=== PATIENT | male | born 2000 | race Caucasian/White ===

== ENCOUNTER 2021-11-15 18:43 | Emergency (ER) | payer BC ==
[2021-11-15] MEDS ORDERED: LIDOCAINE 1% W/EPI 1:100,000 MDV 20 ML VIAL ONE (19:12)
[2021-11-15] MEDS ORDERED: CEFAZOLIN SODIUM 1 GM/VIAL ONE (19:27)
[2021-11-15] MEDS ORDERED: TETANUS & DIPHTHERIA TOX,ADULT 0.5 ML VIAL ONE (19:27)
--- NOTE | 2021-11-15 20:27 | RAD REPORT ---
EXAM DESCRIPTION: RAD -Hand Left 3 View - 11/15/2021 8:20 pm CLINICAL HISTORY: Left hand pain status post injury FINDINGS: No fracture or dislocation is seen.
--- NOTE | 2021-11-15 20:45 | EDPHYS ---
Physician Documentation [facility] Name: Tadeo Ngo Age: 21 yrs Sex: Male : 2000 Arrival Date: 11/15/2021 Time: 18:46 Bed 8 Private MD: ED Physician Yosef White HPI: 11/15 19:23 This 21 yrs old Male presents to ER via Ambulatory with complaints of Laceration To [facility]. 19:23 The patient has a laceration related to: a puncture wound from a knife , occurred at a [facility] [place], and The type of wound is a puncture. The injury was accidental. The laceration(s) is(are) located on the Left hand first web space. Onset: The symptoms/episode began/occurred just prior to arrival, today. Associated signs and symptoms: Pertinent negatives: deformity, dizziness, heavy bleeding, loss of consciousness, numbness distal to injury, suspected foreign body. Patient states that he was cutting fascia with a knife when he accidentally cut himself on the left hand. He denies any other injuries.. 19:23 According to nursing staff patient had a possible arterial bleeding from wound upon his [facility] arrival to the ED and a tourniquet was placed to the left wrist. No arterial bleeding noted at time of physician examination.. Historical: - Allergies: 19:02 No Known Allergies; jl7 - Home Meds: 19:02 None [Active]; jl7 - PMHx: 19:02 None; jl7 - PSHx: 19:02 None; jl7 - Immunization history:: Adult Immunizations up to date. - Social history:: Smoking status: Patient denies any tobacco usage or history of. ROS: 19:23 Constitutional: Negative for fever, chills, and weight loss, Eyes: Negative for injury, mh7 pain, redness, and discharge, ENT: Negative for injury, pain, and discharge, Neck: Negative for injury, pain, and swelling, Cardiovascular: Negative for chest pain, palpitations, and edema, Respiratory: Negative for shortness of breath, cough, wheezing, and pleuritic chest pain, Abdomen/GI: Negative for abdominal pain, nausea, vomiting, diarrhea, and constipation, Back: Negative for injury and pain, : Negative for injury, bleeding, discharge, and swelling, Neuro: Negative for headache, weakness, numbness, tingling, and seizure, Psych: Negative for depression, anxiety, suicide ideation, homicidal ideation, and hallucinations, Allergy/Immunology: Negative for hives, rash, and allergies, Endocrine: Negative for neck swelling, polydipsia, polyuria, polyphagia, and marked weight changes, Hematologic/Lymphatic: Negative for swollen nodes, abnormal bleeding, and unusual bruising. Exam: 19:23 Constitutional: This is a well developed, well nourished patient who is awake, alert, mh7 and in no acute distress. Head/Face: Normocephalic, atraumatic. Eyes: Pupils equal round and reactive to light, extra-ocular motions intact. Lids and lashes normal. Conjunctiva and sclera are non-icteric and not injected. Cornea within normal limits. Periorbital areas with no swelling, redness, or edema. 19:23 Neuro: Awake and alert, GCS 15, oriented to person, place, time, and situation. Cranial nerves II-XII grossly intact. Motor strength 5/5 in all extremities. Sensory grossly intact. Cerebellar exam normal. Normal gait. Psych: Awake, alert, with orientation to person, place and time. Behavior, mood, and affect are within normal limits. 19:23 Musculoskeletal/extremity: Extremities: noted in the Left hand first web space: laceration, ROM: intact in all extremities, Circulation is intact in all extremities. Sensation intact. Compartment Syndrome exam of affected extremity: is normal. no numbness, no tingling, no sensation deficit, no palor, no weak pulses, Joints: All joints appear normal with full range of motion. Tendon exam: specific tendon testing normal through active and passive range of motion 19:23 Skin: injury, laceration(s), the wound is approximately 2 cm(s), with a depth of 0.25 cm(s), of the Left hand first web space, that can be described as clean, no foreign body, linear, with moderate bleeding. Vital Signs: 19:17 BP 121 / 85; Pulse 65; Resp 18 S; Pulse Ox 99% on R/A; Pain 10/10; lg3 20:48 BP 102 / 72; Pulse 50; Resp 18; Pulse Ox 100% on R/A; Pain 4/10; lg3 Laceration: 19:10 Wound Repair of 2cm ( 0.8in ) subcutaneous laceration to Left hand first web space. 7 Linear shaped.. Minimal bleeding noted.. Hemostasis noted.. Distal neuro/vascular/tendon intact. Anesthesia: Local anesthetic administered with 3 mls of 1% lidocaine w/ Epi. Wound prep: Extensive cleansing with hibiclenz by me, Wound irrigation with saline by me, Wound explored extensively, Copious irrigation. Skin closed with 3 3-0 Ethilon using 1 [id number] suture placed due to reported history of possible arteriole bleeding. Dressed with Bacitracin, 4x4's, non-adherent dressing. Patient tolerated well. MDM: 20:42 Differential diagnosis: superficial laceration, tendon injury, vascular injury. Data [facility] reviewed: vital signs, nurses notes, radiologic studies, plain films. Data interpreted: Pulse oximetry: on room air is 99 %. Interpretation: normal. Counseling: I had a detailed discussion with the patient and/or guardian regarding: the historical points, exam findings, and any diagnostic results supporting the discharge/admit diagnosis, radiology results, the need for outpatient follow up, to return to the emergency department if symptoms worsen or persist or if there are any questions or concerns that arise at home. Response to treatment: the patient's symptoms have resolved after treatment, the patient's blood pressure is in an acceptable range, mental status has returned to baseline, the patient no longer shows bradycardia, the patient is not short of breath, the patient is not tachycardic, the patient's pain is gone, the patient's temperature has normalized. 20:45 Patient medically screened. 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 Exp: lg3 01/17/2023. Lot #: [id number]. } Route: IM; Site: right gluteus; 20:52 Follow up: Response: No adverse reaction lg3 19:34 Drug: Ancef (cefazolin) 1 grams Route: IM; Site: right deltoid; lg3 20:52 Follow up: Response: No adverse reaction lg3 Disposition Summary: 11/15/21 20:45 Discharge Ordered Location: Home [facility] Problem: new [facility] Symptoms: have improved [facility] Condition: Stable 7 Diagnosis - Laceration, left hand mh7 Followup: [facility] - With: Private Physician - When: 1 - 2 days - Reason: Wound Recheck, Worsening of condition, Recheck today's complaints, Continuance of care, Re-evaluation by your physician Followup: [facility] - With: Emergency Department - When: 1 - 2 days - Reason: Wound Recheck, Worsening of condition, Recheck today's complaints, Continuance of care, Re-evaluation by your physician Followup: [facility] - With: Jason Bryson MD - When: 2 - 3 days - Reason: Worsening of condition, Recheck today's complaints Discharge Instructions: - Discharge Summary Sheet [facility] - Laceration Care, Adult, [id number] [facility] - Sutured Wound Care, [id number] [facility] Forms: - Medication Reconciliation Form [facility] - Thank You Letter [facility] - Antibiotic Education [facility] - Prescription Opioid Use [facility] Prescriptions: - Cephalexin 500 mg Oral Capsule - take 1 capsule by ORAL route every 8 hours for 7 days; 21 capsule; Refills: 0, [facility] Product Selection Permitted - Ibuprofen 800 mg Oral Tablet - take 1 tablet by ORAL route every 8 hours As needed take with food; 15 tablet; 7 Refills: 0, Product Selection Permitted Signatures: Dispatcher [employer] Eugenia Pickard RN RN bb Leal, Jahala, RN RN jl7 Blanca Cole RN RN lg3 Yosef White MD MD [facility]
--- NOTE | 2021-11-15 20:45 | ER ---
Nurse's Notes [facility] Name: Tadeo Ngo Age: 21 yrs Sex: Male : 2000 Arrival Date: 11/15/2021 Time: 18:46 Bed 8 Private MD: Diagnosis: Laceration, left hand Presentation: 11/15 18:51 Chief complaint: Patient states: cut finger between pointer and thumb x 45 mins ago vg1 while cutting fish. Coronavirus screen: Vaccine status: Patient reports receiving the 2nd dose of the covid vaccine. Client denies travel out of the [place] in the last 14 days. Ebola Screen: Patient negative for fever greater than or equal to 101.5 degrees Fahrenheit, and additional compatible Ebola Virus Disease symptoms. 18:51 Method Of Arrival: Ambulatory vg1 19:02 Acuity: DERRICK 2 jl7 19:18 Complicating Factors: There are no complicating factors for this patient. Initial lg3 Sepsis Screen: Does the patient meet any 2 criteria? No. Patient's initial sepsis screen is negative. Does the patient have a suspected source of infection? No. Patient's initial sepsis screen is negative. Risk Assessment: Do you want to hurt yourself or someone else? Patient reports no desire to harm self or others. Onset of symptoms was November 15, 2021. Historical: - Allergies: 19:02 No Known Allergies; jl7 - Home Meds: 19:02 None [Active]; jl7 - PMHx: 19:02 None; jl7 - PSHx: 19:02 None; jl7 - Immunization history:: Adult Immunizations up to date. - Social history:: Smoking status: Patient denies any tobacco usage or history of. Screenin:13 Abuse screen: Denies threats or abuse. Nutritional screening: No deficits noted. lg3 Tuberculosis screening: No symptoms or risk factors identified. Fall Risk None identified. Assessment: 19:13 General: Appears in no apparent distress. uncomfortable, Behavior is calm, cooperative. lg3 Pain: Complains of pain in left hand Pain currently is 10 out of 10 on a pain scale. Neuro: No deficits noted. Level of Consciousness is awake, alert, obeys commands, Oriented to person, place, time, situation, Speech is normal. Cardiovascular: No deficits noted. Capillary refill < 3 seconds JVD is absent Patient's skin is warm and dry. Respiratory: Airway is patent Trachea midline Respiratory effort is even, unlabored, Respiratory pattern is regular, symmetrical. GI: No deficits noted. No signs and/or symptoms were reported involving the gastrointestinal system. : No deficits noted. No signs and/or symptoms were reported regarding the genitourinary system. EENT: No deficits noted. No signs and/or symptoms were reported regarding the EENT system. Derm: Wound noted Left first web space. Musculoskeletal: No deficits noted. No signs and/or symptoms reported regarding the musculoskeletal system. Range of motion: intact in all extremities. Injury Description: Laceration is clean, 0.5 to 2.5 cm long, bleeding moderately. Vital Signs: 19:17 BP 121 / 85; Pulse 65; Resp 18 S; Pulse Ox 99% on R/A; Pain 10/10; lg3 20:48 BP 102 / 72; Pulse 50; Resp 18; Pulse Ox 100% on R/A; Pain 4/10; lg3 ED Course: 18:46 Patient arrived in ED. mr 19:02 Triage completed. 7 19:02 Arm band placed on right wrist. Patient placed in the treatment room, on a stretcher. 7 19:09 Blanca Cole, RN is Primary Nurse. 3 19:13 Patient has correct armband on for positive identification. Bed in low position. Call 3 light in reach. Side rails up X 1. 19:13 Assist provider with laceration repair on left hand Set up tray. Inserted saline lock: 3 20 gauge in right antecubital area, using aseptic technique. 19:21 Yosef White MD is Attending Physician. [facility] 20:20 XRAY Hand LEFT 3 View In Process Unspecified. EDMS 20:44 Jason Bryson MD is Referral Physician. [facility] 20:51 IV discontinued, intact, bleeding controlled, Pressure dressing applied. 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 Exp: lg3 01/17/2023. Lot #: [id number]. } Route: IM; Site: right gluteus; 20:52 Follow up: Response: No adverse reaction lg3 19:34 Drug: Ancef (cefazolin) 1 grams Route: IM; Site: right deltoid; lg3 20:52 Follow up: Response: No adverse reaction lg3 Outcome: 20:45 Discharge ordered by . mikayla 20:51 Discharged to home ambulatory. lg3 20:51 Condition: stable 20:51 Discharge instructions given to patient, Instructed on discharge instructions, Prescriptions given X 2. 21:02 Patient left the ED. lg3 Signatures: Dispatcher [employer] EDWA EltonAliyahalJuan RN RN jl7 Blanca Cole RN RN lg3 Ann-Marie Gonzalez RN RN vg1 Yosef White MD MD 7
[2021-11-15 21:10] VITALS: BP 102/72; O2SAT 100
== END 2021-11-15 21:02 | disposition home or self-care (01) ==
LOC: ER 18:43
PROC: 0JQK0ZZ Repair Left Hand Subcutaneous Tissue and Fascia, Open Approach (ICD-10-PCS; principal; 2021-11-15)
DX: S61.412A Laceration without foreign body of left hand, initial encounter (principal); W26.0XXA Contact with knife, initial encounter; Z23 Encounter for immunization
CPT/HCPCS: 73130; 90471; 90714; 96372; 99284; 12001; J0690